=== PATIENT | female | born 1990 | race Caucasian/White ===

== ENCOUNTER 2025-05-29 13:39 | Emergency (ER) | payer OTHER ==
[~2025-05-29] VITALS: Ht 154.9 cm; Wt 93.4 kg
[2025-05-29 13:59] VITALS: TEMP 98.9
[2025-05-29 14:42] LABS: BASOPHILS % 0.3 % (0.0-1.0); EOSINOPHILS % 3.0 % (0.0-6.0); LYMPHOCYTES % 35.9 % (18.0-39.1); MONOCYTES % 5.9 % (4.4-11.3); NEUTROPHILS % 54.4 % (38.7-80.0); RED CELL DISTRIBUTION WIDTH 15.4 % (11.7-14.4)
[2025-05-29 14:47] LABS: INR 0.92
[2025-05-29] MEDS: SODIUM CHLORIDE 0.9% 1000ML 1,000 ML IV STA (14:52)
[2025-05-29 14:54] LABS: EST GLOMERULAR FILTRATION RATE 118 ML/MIN (>=60)
[2025-05-29] MEDS ORDERED: IOPAMIDOL 370 MG/ML 100 ML INFUS..BTL INJ ONE (14:57)
[2025-05-29] MEDS ORDERED: SODIUM CHLORIDE 0.9% 100 ML ONE (14:57)
[2025-05-29] MEDS: KETOROLAC TROMETHAMINE 30 MG/ML VIAL IV STA (16:45)
[2025-05-29] MEDS: DIPHENHYDRAMINE HCL INJ 50 MG/ML VIAL IV ONE (16:48)
[2025-05-29] MEDS: SODIUM CHLORIDE 0.9% 500ML 500 ML IV ONE (16:49)
[2025-05-29] MEDS: METOCLOPRAMIDE HCL 10 MG/2ML VIAL IV ONE (16:49)
[2025-05-29] MEDS: ASPIRIN 81 MG CHEW TAB PO ONE (16:49)
[2025-05-29 17:00] VITALS: PULSE 63; RESP 21; O2SAT 98
[2025-05-29 17:20] LABS: AMPHETAMINES SCREEN,URINE NEGATIVE (NEGATIVE); CANNABINOIDS SCREEN,URINE NEGATIVE (NEGATIVE); COCAINE SCREEN,URINE NEGATIVE (NEGATIVE); LEUKOCYTE ESTERASE ,URINE SMALL (NEGATIVE); METHADONE SCREEN, URINE NEGATIVE (NEGATIVE); OPIATES SCREEN,URINE NEGATIVE (NEGATIVE); PROTEIN,URINE DIPSTICK NEGATIVE (NEGATIVE); URINE UROBILINOGEN 0.2 mg/dL (0.2 - 1)
[2025-05-29 17:35] LABS: EPITHELIAL CELLS,URINE MANY /LPF
== END 2025-05-29 18:31 | disposition other institution (70) ==
LOC: ER 14:22
DX: R29.810 Facial weakness (principal); R51.9 Headache, unspecified; F41.9 Anxiety disorder, unspecified; F32.A Depression, unspecified
CPT/HCPCS: 36415; 70450; 70496; 70498; 71045; 80053; 80307; 81001; 83735; 84484; 84702; 85025; 85610; 85730; 93005; 99284; J1200; J1885; J2765; J7030; J7040; J7050; Q9967